=== PATIENT | male | born 1980 | race Caucasian/White ===

== ENCOUNTER 2018-08-23 20:47 | Emergency (ER) | payer OTHER ==
[~2018-08-23] VITALS: Ht 185.4 cm; Wt 110.2 kg
[~2018-08-23 20:47] MED LIST: DESPEC-DM TABL1 EACH PO; LEVAQUIN750 MG PO
== END 2018-08-23 22:47 | disposition home or self-care (01) ==
LOC: ER 20:47
DX: M25.562 Pain in left knee (principal)